=== PATIENT | female | born 1975 | race Caucasian/White ===

== ENCOUNTER 2023-05-17 16:08 | Outpatient (CLI) | payer MEDICAID ==
[~2023-05-17 16:08] MED LIST: DIAZ5TAB22 PO; RABE20TA25 PO; [UNRECOGNIZED DRUG - CODE]
== END 2023-05-17 23:59 | disposition home or self-care (01) ==
LOC: RAD 16:08
PROVIDERS: ATTEND Family Medicine
DX: M17.11 Unilateral primary osteoarthritis, right knee (principal); M25.561 Pain in right knee
CPT/HCPCS: 73564